=== PATIENT | male | born 1965 | race Caucasian/White ===

== ENCOUNTER 2023-10-18 14:06 | Emergency (ER) | payer OTHER ==
[~2023-10-18] VITALS: Ht 175.3 cm; Wt 83.9 kg
[2023-10-18 14:51] LABS: CREATININE 0.9 mg/dL (0.5-1.3); POTASSIUM 4.3 mmol/L (3.5-5.1)
[2023-10-18 14:54] LABS: HEMATOCRIT 34.5 % (42-54); MEAN CORPUSCULAR HEMOGLOBIN 31.3 pg (27.0-33.0); MEAN CORPUSCULAR HGB CONC 35.1 g/dL (32.0-36.0); MEAN CORPUSCULAR VOLUME 89.1 fL (79-99); RED BLOOD CELL COUNT(AUTO) 3.87 MIL/uL (4.50-6.20); RED CELL DISTRIBUTION WIDTH 12.2 % (11.0-15.5)
[2023-10-18 16:11] LABS: THYROID STIMULATING HORMONE 1.14 uIU/mL (0.36-3.74)
[2023-10-18] MEDS: NITROGLYCERIN 0.4 MG SL TAB SL PRN (16:20)
[2023-10-18] MEDS: ASPIRIN 325MG TAB PO ONE (16:20)
[2023-10-18 19:13] VITALS: BP 122/66; PULSE 58; RESP 18; O2SAT 99
== END 2023-10-18 20:21 ==
LOC: EDH 14:06 → EEVIPCON 14:06 → EDH 20:21
DX: R55 Syncope and collapse (principal); E78.00 Pure hypercholesterolemia, unspecified; I10 Essential (primary) hypertension; Z90.49 Acquired absence of other specified parts of digestive tract
CPT/HCPCS: 36415; 70450; 80048; 83735; 84443; 84484; 85027; 93005